=== PATIENT | female | born 1970 | race Caucasian/White ===

== ENCOUNTER 2017-03-17 12:38 | Observation (INO) ==
--- NOTE | 2017-03-17 15:06 | General Surg History&Physical ---
Date of Encounter: 03/17/17 Time of Encounter: 16:44 Assessment and Plan (1) Acute appendicitis Current Visit: No Status: Acute admit to inpatient IVF: d5LR, change to MIVF in AM NPO consent for lap appy; plan for surgery tonight abx: zosyn; lovenox for DVT prophylaxis activity as tolerated vitals/I&Os q4hrs The assessment and plan as outlined above was discussed with the patient and/or family members who expressed understanding and agreement. All questions were answered. Qualifiers: Acute appendicitis type: with localized peritonitis Qualified Code(s): K35.3 - Acute appendicitis with localized peritonitis Code(s): K35.80 - Unspecified acute appendicitis (2) Leukocytosis Current Visit: Yes Status: Acute NPO, IVF, abx lap appy anticipate resolution of leukocytosis post operatively; no need to recheck labs or trend unless patient has a prolonged or unexpected hospital course The assessment and plan as outlined above was discussed with the patient and/or family members who expressed understanding and agreement. All questions were answered. (3) Acute right lower quadrant pain Current Visit: Yes Status: Acute see aboveThe assessment and plan as outlined above was discussed with the patient and/or family members who expressed understanding and agreement. All questions were answered. History of Present Illness Chief complaint: abdominal pain HPI: Ms. Chaney is a 46 year old female with 2 days of worsening abdominal pain that began in the midepigastrium and migrated to the RLQ pain. No pain is sharp without any alleviating or exacerbating factors. No associated nausea or vomiting, fevers, but the patient does report subjective chills. The patient has never had a pain like this in the past. She presented to an outside ED prior to transfer to [facility]. Past Med Surg Social Fam HX - Past Medical History Source: patient Medical history: no medical history Psychiatric history: no psych history - Past Surgical History Surgical History: other (tubal ligation, right) - Social History Smoking Status: Current every day smoker Packs per day: 1/2 Smokeless Tobacco Status: No Alcohol use: none, occasionally Drug use: none Current living situation: Home Activity Level: Independent ambulation - Family History Mother Family Member Ethnicity: Non- (prior blood clot after hysterectomy) Medications and Allergies Ibuprofen [Motrin] 400 - 600 mg PO Q6H PRN 03/17/17 [History] 3 Allergy/AdvReac Type Severity Reaction Status Date / Time codeine Allergy See Verified 03/17/17 11:22 Comments latex Allergy Rash Verified 03/17/17 11:23 Review of Systems All systems PM: A 10-system review of systems was performed and is negative for pertinent findings except as documented above in the HPI. General Surgery Exam Initial Vital Signs Temp Pulse Resp BP Pulse Ox 98.5 F 86 16 105/66 94 03/17/17 14:17 03/17/17 14:17 03/17/17 14:17 03/17/17 14:17 03/17/17 14:17 - General physical appearance well developed, well nourished, no distress - Eyes other (no slceral icterus), normal ocular movement - Neck no masses, no lymphadectomy, other (supple) - Respiratory normal expansion, normal respiratory effort, clear to percussion, clear to auscultation - Cardiovascular Cardiovascular exam: Present: RRR, no murmurs/rubs/gallops - Abdomen Abdomen general surgery: Present: soft (focal peritonitis), tender Abdominal Tenderness: Present: RUQ, RLQ (tender at McBurney's point; (+)Rosving sign) Hernia: Present: none - Integumentary Integumentary general surgery: Present: warm and dry, no abnormal pigmentation - Neurologic Present: CN 2-12 grossly intact - Musculoskeletal Present: normal gait, other (full range of motion appreciated in upper and lower extremities bilaterally) - Psychiatric Psychiatric general surgery: Present: A&Ox3, speech is normal Results - Labs All other labs normal except: WBC; 14.8; Glucose: 141 - Imaging CT scan - abdomen: report reviewed, image reviewed CT scan - pelvis: report reviewed, image reviewed (inflamamtion of appendix, appearance of multiple appendicoliths; no abscess or perforation)
[2017-03-17] MEDS ORDERED: *HR* Morphine 2 MG/ML SYRINGE IVP PRN (15:20)
[2017-03-17] MEDS ORDERED: D5% in Lactated Ringers 1,000 ML IVC SCH (15:30)
[2017-03-17] MEDS ORDERED: Lidocaine -MPF 2% 2 ML VIAL ONE (17:03)
[2017-03-17] MEDS ORDERED: *HR* Succinylcholine 200 MG/10 ML VIAL IVP ONE (17:03)
[2017-03-17] MEDS ORDERED: Lidocaine -MPF 4% 5 ML AMPUL ONE (17:03)
[2017-03-17] MEDS ORDERED: *HR* Rocuronium Bromide 50 MG/5 ML VIAL ONE (17:03)
[2017-03-17] MEDS ORDERED: Ondansetron 4 MG/2 ML VIAL ONE (17:03)
[2017-03-17] MEDS ORDERED: Dexamethasone 4 MG/ML VIAL ONE (17:03)
[2017-03-17] MEDS ORDERED: *HR* Midazolam HCl 2 MG/2 ML VIAL ONE (17:10)
[2017-03-17] MEDS ORDERED: *HR* HYDROmorphone 2 MG/ML SYRINGE ONE (17:10)
[2017-03-17] MEDS ORDERED: *HR* FentaNYL (PF) 100 MCG/2 ML VIAL ONE (17:10)
[2017-03-17] MEDS ORDERED: *HR* Propofol 200 MG/20 ML VIAL IVP ONE (17:10)
[2017-03-17] MEDS ORDERED: Water for inj. (sterile) 10 ML IV ONE (17:12)
--- NOTE | 2017-03-17 17:35 | Anesthesia Evaluation PreOp ---
Date of Encounter: 03/17/17 Time of Encounter: 17:33 - Past History Planned Operation: Lap appendectomy Cardiac History: Denies any Significant Hx Pulmonary History: Smoker TRADE FACILITATOR History: Denies Any Significant HX Other Medical History: Denies Any Significant HX Anesthesia History: Past Anesthesia (tubal) Alcohol Use: none, occasionally Drug use: none Medications and Allergies Ibuprofen [Motrin] 400 - 600 mg PO Q6H PRN 03/17/17 [History] 3 Allergy/AdvReac Type Severity Reaction Status Date / Time codeine Allergy See Verified 03/17/17 11:22 Comments latex Allergy Rash Verified 03/17/17 11:23 - Meds/Allergy Pre-op Review Medications Reviewed: Yes Allergies Reviewed: Yes Beta Blockers on Current Med List: No Anesthesia Results - Labs Laboratory Tests 03/17/17 03/17/17 03/17/17 11:45 11:45 11:45 WBC 14.8 H Hgb 13.4 Hct 38.2 Plt Count 206 Sodium 136 Potassium 3.7 Chloride 102 Carbon Dioxide 23 BUN 16 Creatinine 0.97 Est GFR ( Amer) > 60 Est GFR (Non-Af Amer) > 60 BUN/Creatinine Ratio 16 Glucose 141 H POC Glucose Calculated Osmolality 286 Calcium 9.4 Urine Test Negative 03/17/17 16:45 WBC Hgb Hct Plt Count Sodium Potassium Chloride Carbon Dioxide BUN Creatinine Est GFR ( Amer) Est GFR (Non-Af Amer) BUN/Creatinine Ratio Glucose POC Glucose 110 H Calculated Osmolality Calcium Urine Test Anesthesia Exam Last Vital Signs Temp 98.5 F 03/17/17 14:17 Pulse 86 03/17/17 14:17 Resp 16 03/17/17 14:17 BP 105/66 03/17/17 14:17 Pulse Ox 94 03/17/17 14:17 Weight: 63 kg - HEENT Pupil (Motor): Pupils equal, EOMI Mallampati: I Teeth: Normal Oral Opening: Greater than 3 - TRADE FACILITATOR LOC: Oriented TRADE FACILITATOR Motor: Normal RUE, Normal LUE, Normal RLE, Normal LLE, Normal Face - Cardiac Rhythm: Regular Murmur: None - Pulmonary Breath Sounds: bilateral Clear Respiratory Effort: Symmetrical Anesthesia Assess/Plan ASA Score: 2 Modified [place] Scale for Level of Consciousness: Cooperative, oriented, and tranquil Anesthetic Plan: General Monitoring Plan: Standard Monitors Recovery Plan: PACU
[2017-03-17] MEDS ORDERED: Ondansetron 4 MG/2 ML VIAL IVP SCH (18:00)
[2017-03-17] MEDS ORDERED: Neostigmine Methylsulfate 3 MG/3 ML SYRINGE ONE (18:16)
[2017-03-17] MEDS ORDERED: *HR* Promethazine 25 MG/ML VIAL IVP PRN (18:27)
[2017-03-17] MEDS ORDERED: Ketorolac 15 MG/ML VIAL IVP ONE (18:27)
[2017-03-17] MEDS ORDERED: Ondansetron 4 MG/2 ML VIAL IVP ONE (18:27)
[2017-03-17] MEDS ORDERED: *HR* Meperidine 25 MG/ML SYRINGE IVP PRN (18:27)
[2017-03-17] MEDS ORDERED: *HR* HYDROmorphone (PF) 1 MG/ML SYRINGE IVP PRN (18:27)
[2017-03-17] MEDS ORDERED: Dexamethasone 4 MG/ML VIAL IVP ONE (18:27)
[2017-03-17] MEDS ORDERED: EPHEDrine 50 MG/ML VIAL ONE (18:42)
[2017-03-17] MEDS ORDERED: Ketorolac 30 MG/ML VIAL ONE (18:50)
[2017-03-17] MEDS ORDERED: *HR* OxyCODONE/APAP 5/325 TABLET PO PRN (19:39)
--- NOTE | 2017-03-17 19:47 | Procedure Note ---
Date of procedure: 03/17/17 Pre-op diagnosis: acute appendicitis Post-op diagnosis: other (gangrenous appendicitis) Procedure: laparoscopic appendectomy Anesthesia: VIRIDIANA Surgeon: Justin Jim Estimated blood loss (cc): 15 Pathology: other (appendix sent) Condition: stable Disposition: PACU
--- NOTE | 2017-03-17 19:55 | Operative Note ---
Date of procedure: 03/17/17 Pre-op diagnosis: acute appendicitis Post-op diagnosis: other (gangrenous appendicitis) Procedure: laparoscopic appendectomy Implants: none Complications: none Anesthesia: GETA Local Anesthetics: 0.5% Sensorcaine HCL SubQ (cc) Surgeon: Justin Jim Early [employer] Teacher Other: Ramses Eddy Estimated blood loss (cc): 15 Specimen: gangrenous appendix Condition: stable Disposition: PACU Procedure in Detail: The patient was brought into the operating room suite. The patient was placed in the supine position. Mechanical DVT prophylaxis was initiated. The patient underwent smooth induction of general endotracheal anesthesia. The patient was prepped and draped in the usual fashion. Preoperative antibiotics were given. A timeout was held identifying the correct patient, pathology, and procedure. Everyone was in agreement and we began a procedure. I started by creating a supraumbilical incision and via open Willams technique entered into the abdomen. I then used a Vicryl suture on a UR 6 needle in a [id number] fashion to reapproximate but not close the fascia. I then inserted the 10 trocar followed by the camera to visualize the intraabdominal cavity. I then created a 5 mm incision suprapubically and inserted the 5 mm trocar under direct visualization. Roughly 1 handbreadth lateral to the umbilical incision I created another 5 mm incision and inserted another 5 mm trocar under direct visualization. I then inserted the nontraumatic instruments into the 5 mm ports and began the procedure. I was able to identify the tinea coli coalescing at the base of the cecum to identify the appendix. Using the nontraumatic grasper I was able to grasp the appendix and then using the [place] dissector was able to create a mesenteric window. It should be stated that the omentum did cover the body of the appendix. After careful dissection I was able to remove the omentum from the specimen and saw that it was gangrenous except for a small segment near the base. I then inserted the nontraumatic grasper into the same mesenteric window to widen it. I then grasped the appendix and switched from the 10 mm camera to the 5 mm camera so that we can insert the stapler through the umbilical port. The teeth of the stapler through the mesenteric window. It should be stated that the stapler was a 60 mm bowel load stapler. It was positioned at the base of the appendix and I was able to confirm under direct visualization that the teeth contained no other structures such as the cecum. I then fired the stapler and resected the appendix from the base of the cecum. I then loaded up a vascular load stapler and then in the similar fashion did fire across the mesentery. I then inserted the Endo Catch bag to retrieve the specimen which was intact upon retrieval. I then switched back to the 10 mm camera and inserted the nontraumatic grasper as well as a suction-certified composites technician into the 5 mm ports. And under direct visualization I was able to appreciate the staple line of the mesoappendix as well as the staple line of the base of the cecum. There was no obvious leaking nor bleeding. The pelvis did not have any collection of fluid. I then concluded the procedure, turned off the insufflation, removed the trochars under direct visualization, and then closed the umbilical fascia using the Vicryl suture that was placed at the beginning. I then closed all incisions with interrupted 4-0 Monocryl. And then sealed with Dermabon. It should be stated that I did use 0.5% Marcaine as a local anesthetic. The patient tolerated the procedure well and did go back to PACU in stable condition.
--- NOTE | 2017-03-17 20:17 | Anesthesia Evaluation Post Op ---
Date of Encounter: 03/17/17 Time of Encounter: 20:06 - Vital Signs Vital Signs: Vital Signs/O2 Sat/Glucose, Most Current Temp Pulse Resp BP Pulse Ox 03/17/17 19:58 99.3 F 78 15 105/61 95 03/17/17 19:48 80 16 109/64 95 03/17/17 19:38 89 16 104/67 95 03/17/17 19:28 98.5 F 66 14 98/54 99 - Lungs Lungs: Clear Ascult./Percussion - Airway Airway: Non-obstructed - Cardiovascular Regular Rate - Mental Status Mental Status: Alert & Oriented, Answers Appropriately - Pain Pain Scale: 0 Pain Scale used: Numeric (1 - 10) - Nausea Vomiting Nausea Vomiting: Not Present - Hydration Hydration: Ice chips, Has not voided - Discharge PostOp Status: Transfer Patient to floor Anes Supervising Prov Stmt: Pt seen/evaluated, VSS and pt has met criteria for discharge to home. - MD Ricardo
[2017-03-17] MEDS ORDERED: Piperacillin/Tazobactam 3.375 GM in D5% in Water (Mini-Bag+) 100 ML IVPB SCH (21:00)
[2017-03-17] MEDS: Piperacillin/Tazobactam 3.375 GM in D5% in Water (Mini-Bag+) 100 ML IVPB SCH (21:03)
[2017-03-17] MEDS: D5% in Lactated Ringers 1,000 ML IVC SCH (22:12)
[2017-03-17] MEDS ORDERED: Ondansetron 4 MG/2 ML VIAL IVP PRN (23:35)
[2017-03-18] MEDS ORDERED: Ondansetron 4 MG/2 ML VIAL IVP SCH
[2017-03-18] MEDS: D5% in Lactated Ringers 1,000 ML IVC SCH (05:06)
[2017-03-18] MEDS: Piperacillin/Tazobactam 3.375 GM in D5% in Water (Mini-Bag+) 100 ML IVPB SCH ×2 (05:07→11:49)
[2017-03-18] MEDS ORDERED: *HR* Enoxaparin 40 MG/0.4 ML SYRINGE SQ SCH ×2 (06:00)
--- NOTE | 2017-03-18 09:41 | Discharge Summary ---
Date of Encounter: 03/18/17 Time of Encounter: 09:00 - Discharge Diagnosis (1) Acute appendicitis Priority: Primary Status: Resolved Qualifiers: Acute appendicitis type: with localized peritonitis Qualified Code(s): K35.3 - Acute appendicitis with localized peritonitis - Discharge Medications Prescriptions: Ibuprofen [Motrin] 800 mg PO Q8HR #50 tablet Amoxicillin/Clavulanate [Augmentin] 875 mg PO BIDWM #5 tablet Docusate [Colace] 100 mg PO BID #30 capsule OxyCODONE/APAP 5/325 [Percocet 5/325 MG] 2 each PO Q4H PRN #30 tablet PRN Reason: Pain Home Medications: Amoxicillin/Clavulanate [Augmentin] 875 mg PO BIDWM #5 tablet 03/18/17 [Rx] Docusate [Colace] 100 mg PO BID #30 capsule 03/18/17 [Rx] Ibuprofen [Motrin] 800 mg PO Q8HR #50 tablet 03/18/17 [Rx] OxyCODONE/APAP 5/325 [Percocet 5/325 MG] 2 each PO Q4H PRN #30 tablet 03/18/17 [ Rx] Allergies/Adverse Reactions: 3 Allergy/AdvReac Type Severity Reaction Status Date / Time codeine Allergy See Verified 03/17/17 11:22 Comments latex Allergy Rash Verified 03/17/17 11:23 General Surgery Exam Initial Vital Signs Temp Pulse Resp BP Pulse Ox 98.5 F 86 16 105/66 94 03/17/17 14:17 03/17/17 14:17 03/17/17 14:17 03/17/17 14:17 03/17/17 14:17 - General physical appearance well developed, well nourished, no distress, moderate pain - Eyes normal ocular movement - ENT normal mucosa, atraumatic, normocephalic - Neck trachea midline - Respiratory normal respiratory effort, clear to auscultation - Cardiovascular Cardiovascular exam: Present: RRR - Abdomen Abdomen general surgery: Present: bowel sounds present, soft, tender (Expected postoperative tenderness) - Incision Incision: Present: clean and dry, intact - Integumentary Integumentary general surgery: Present: warm and dry - Neurologic Present: CN 2-12 grossly intact - Musculoskeletal Present: normal gait, normal posture - Psychiatric Psychiatric general surgery: Present: appropriate, oriented to person, oriented to place, oriented to time, speech is normal, memory intact Date of admission: 03/17/17 14:03 Primary care physician: PCP NONE Discharging clinician: Justin Jim ([facility]) Anticipated date of discharge: 03/18/17 - Patient Status Disposition: Home, Self-Care Condition: Good Functional capacity at discharge: independent ambulation Overall status at discharge: patient is progressing back to baseline - Discharge Instructions Follow Up With: NONE,PCP [Primary Care Provider] - Kristopher Horowitz MD [Family Provider] - Bel Meier CLINICAL MENTAL HEALTH COUNSELOR [Advanced Practice Nurse] - 04/01/17 9:30 am (Surgery follow -up) Additional Instructions: #1 may shower 03/19/17, no tub bath X 2 weeks #2 wash incisions with soap and water and pat dry daily #3 no lifting, pushing, pulling more than 15 pounds for the next 2 weeks #4 no driving until off narcotics for 24 hours and able to safely react in the car #5 may climb stairs - Diet and Activity Activity: other (See additional instructions above) Diet: advance to your usual diet - Hospital Course Hospital course: Ms. Chaney is a 46 year old female who presented to the hospital with a 6 day history of abdominal pain with associated nausea and vomiting. The patient was found to have acute appendicitis on CT scan evaluation. She was started on IV antibiotics and taken to the operating room with Dr. Jim for a laparoscopic appendectomy. On postoperative day #1, she states that she is feeling much better and her preoperative pain has resolved. We will begin discharge planning to home when the patient meets discharge criteria including tolerating a diet without nausea or vomiting, vital signs are stable and afebrile, pain is well-controlled, voiding and ambulating without difficulty. We will plan for outpatient follow-up in the next 10-14 days. The patient will be transitioned to oral antibiotics at discharge. - Time Spent with Patient Total time spent providing and/or coordinating discharge services: Less than 30 minutes
[2017-03-18 10:53] VITALS: BP 92/58
== END 2017-03-18 13:50 | disposition home or self-care (01) ==
LOC: 3ANU
PROVIDERS: ADMIT Surgery; ATTEND Surgery